=== PATIENT | female | born 1990 | race Caucasian/White ===

== ENCOUNTER 2023-09-06 16:19 | Emergency (ER) | payer OTHER, SELFPAY ==
--- NOTE | 2023-09-06 17:40 | RAD REPORT ---
EXAM DESCRIPTION: [place] Single View09/06/2023 5:12 pm CLINICAL HISTORY: Chest pain COMPARISON: none FINDINGS: The lungs appear clear of acute infiltrate. The heart is normal size IMPRESSION: No acute abnormalities displayed
--- NOTE | 2023-09-06 17:41 | RAD REPORT ---
EXAM DESCRIPTION: RAD - Humerus Left - 09/06/2023 5:12 pm CLINICAL HISTORY: Left arm pain FINDINGS: No fracture is seen
[2023-09-06] MEDS ORDERED: ACETAMINOPHEN 325 MG TABLET ONE (17:42)
--- NOTE | 2023-09-06 17:42 | RAD REPORT ---
EXAM DESCRIPTION: RAD - Forearm Left - 09/06/2023 5:12 pm CLINICAL HISTORY: Left forearm pain status post injury FINDINGS: No fracture is seen
[2023-09-06 17:58] LABS: Urine Bacteria None Seen /HPF (<20); Urine Mucus Slight /HPF (None Seen); Urine RBC <5 /HPF (None Seen)
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
[2023-09-06 18:17] VITALS: TEMP 97.5
[2023-09-06 18:19] VITALS: BP 114/79; O2SAT 97
== END 2023-09-06 18:13 | disposition home or self-care (01) ==
LOC: ER 16:19
DX: R07.89 Other chest pain (principal); M25.512 Pain in left shoulder; M79.602 Pain in left arm; V43.52XA Car driver injured in collision with other type car in traffic accident, initial encounter; Y93.89 Activity, other specified; Y92.410 Unspecified street and highway as the place of occurrence of the external cause; Z88.0 Allergy status to penicillin
CPT/HCPCS: 71045; 81015; 81025; 99283